=== PATIENT | male | born 1980 | race Asian ===

== ENCOUNTER 2019-07-29 14:36 | Emergency (ER) | payer BC ==
[~2019-07-29] VITALS: Ht 188 cm; Wt 104.5 kg
[2019-07-29 14:37] VITALS: BP 145/89
[2019-07-29] MEDS ORDERED: SITA1TBM4 PO (14:57)
[2019-07-29] MEDS ORDERED: CANA100T PO (15:02)
[2019-07-29] MEDS ORDERED: ATOR20TA65 PO (15:02)
[2019-07-29] MEDS ORDERED: LOSA25TA71 PO (15:02)
== END 2019-07-29 15:05 | disposition home or self-care (01) ==
LOC: EMS 14:54
DX: R05 Cough (principal); R50.9 Fever, unspecified; Z20.828 Contact with and (suspected) exposure to other viral communicable diseases
CPT/HCPCS: 87635